=== PATIENT | male | born 1985 | race American Indian/Alaskan Native ===

== ENCOUNTER 2018-07-17 19:33 | Inpatient (IN) | payer SELFPAY ==
[2018-07-17] MEDS ORDERED: KEPPRA 1,000 MG/NS 0.75% 100ML 1,000 MG/100 ML BAG IV ONE (19:40)
[2018-07-17] MEDS ORDERED: ATIVAN IV ONE ×2 (19:40→22:30)
[2018-07-17] MEDS ORDERED: NACL 0.9% 1000 ML 1,000 ML IV ONE ×2 (19:40→20:35)
[2018-07-17] MEDS ORDERED: HumuLIN R IV ONE (19:41)
--- NOTE | 2018-07-17 19:59 | Emergency Department Report ---
ED Seizure HPI - General Stated Complaint: SEIZURE Time Seen by Provider: 07/17/18 19:40 Source: family, EMS - History of Present Illness Initial Comments: Patient is 33 years old male with no significant past medical history except for a remote seizure when he was 6 years old. Mother is giving history. She stated that since he was 6 years old he never had any seizure. Patient mother stated that he was getting dressed to go out and patient all of a sudden started having a jerking movement and his eyes rolled back and became unconscious. Mother stated that this is happening so far 3 times with no recovery in between. She denied any head injury or any other trauma before. EMS stated that patient blood sugar was 450. MD Complaint: seizure Description of Episode: loss of consciousness, tonic-clonic movement, post- event confusion Witnessed:: Yes Trauma: No Seizure History: known seizure disorder Place: home Possible Precipitating Event: none Associated Symptoms: denies other symptoms - Related Data Home Medications Medication Instructions Recorded Confirmed Last Taken No Known Home Medications [No 07/17/18 07/17/18 Unknown Reported Home Medications] Allergies Allergy/AdvReac Type Severity Reaction Status Date / Time No Known Allergies Allergy Unverified 07/17/18 19:47 ED Review of Systems ROS: Stated complaint: SEIZURE Other details as noted in HPI Comment: Unobtainable due to pts medical conditions ED Past Medical Hx - Medications Home Medications: Home Medications Medication Instructions Recorded Confirmed Last Taken Type No Known Home Medications [No 07/17/18 07/17/18 Unknown History Reported Home Medications] ED Physical Exam - General General appearance: obtunded, in distress - Head Head exam: Present: atraumatic, normocephalic, normal inspection - Eye Eye exam: Present: normal appearance, PERRL - ENT ENT exam: Present: normal exam, normal orophraynx, mucous membranes moist - Neck Neck exam: Present: normal inspection, full ROM. Absent: tenderness, meningismus, lymphadenopathy, thyromegaly - Respiratory Respiratory exam: Present: normal lung sounds bilaterally. Absent: respiratory distress, wheezes, rales, rhonchi, accessory muscle use, decreased breath sounds , prolonged expiratory - Cardiovascular Cardiovascular Exam: Present: tachycardia - GI/Abdominal GI/Abdominal exam: Present: soft, distended - Extremities Exam Extremities exam: Present: normal inspection, full ROM, normal capillary refill. Absent: pedal edema - Neurological Exam Neurological exam: Present: altered, other (postictal) - Skin Skin exam: Present: warm, intact, normal color ED Course Vital Signs 07/17/18 07/17/18 07/17/18 19:40 19:45 20:23 Temperature 99.9 F H Pulse Rate 189 H 154 H Respiratory 38 H 38 H 38 H Rate Blood Pressure 125/88 146/74 [Left] O2 Sat by Pulse 100 89 Oximetry 07/17/18 07/17/18 21:00 22:26 Temperature Pulse Rate 149 H Respiratory 34 H 30 H Rate Blood Pressure 139/73 [Left] O2 Sat by Pulse 50 L Oximetry - Reevaluation(s) Reevaluation #1: 07/17/18 20:30 Patient still obtunded and tachypneic. Oxygen saturation is 95% on 4 L. Patient started on IV fluids, given Ativan, Keppra and insulin. ABG ordered. Reevaluation #2: 07/17/18 21:18 Patient received sodium bicarbonate in started responding to voice or stimuli. His respiratory rate is down to 28 now. Patient denying diabetes 54 with a blood sugar off more than 600. Patient is in obvious DKA. Insulin drip started and patient continue on IV fluids. Decision to hold intubation was made because patient is responding to bicarbonate. I believe this is metabolic acidosis secondary to diabetic ketoacidosis with, and secondary respiratory alkalosis. Patient's CT brain is negative for acute findings. ED Medical Decision Making - Lab Data Result diagrams: 07/17/18 20:20 07/17/18 21:59 - EKG Data -: EKG Interpreted by Wi EKG shows normal: sinus rhythm Rate: tachycardia - EKG Data Interpretation: no acute changes - Radiology Data Radiology results: report reviewed Referring Physician: PAZ ALMEIDA Patient Name: CODEY GASPAR Date of : 1985 Sex: Male Report Date: 2018-07-17 Report Status: Finalized Findings [facility] [address] [place] [address] Cat Scan Report Signed Patient: CODEY GASPAR MR#: [id number] : 1985 Acct:[id number] Age/Sex: 33 / M ADM Date: 07/17/18 Loc: ED Attending Dr: Ordering Physician: PAZ ALMEIDA Date of Service: 07/17/18 Procedure(s): CT head/brain wo con Accession Number(s): [id number] cc: PAZ ALMEIDA FINAL REPORT EXAM: CT HEAD/BRAIN WO CON HISTORY: Seizure TECHNIQUE: 2.5 millimeter axial images from the skullbase to the vertex. Comparison: None FINDINGS: There is no evidence of an acute intracranial process, intracranial hemorrhage or mass effect. The ventricles are normal size. The visualized portions of the orbits, paranasal and mastoid sinuses the are notable for a moderate-sized polyp or retention cyst in the left maxillary sinus. There is no evidence of fracture. IMPRESSION: 1. No evidence of an acute intracranial process, intracranial hemorrhage or mass effect. If there is a clinical suspicion of an acute intracranial process, MRI brain may be helpful for further evaluation. Transcribed By: ED Dictated By: PRABHJOT YIN MD Electronically Authenticated By: PRABHJOT YIN MD Signed Date/Time: 07/17/182022 Referring Physician: PAZ ALMEIDA Patient Name: CODEY GASPAR Date of : 1985 Sex: Male Report Date: 2018-07-17 Report Status: Finalized Findings [facility] [address] [place] [address] XRay Report Signed Patient: CODYE GASPAR MR#: [id number] : 1985 Acct:[id number] Age/Sex: 33 / M ADM Date: 07/17/18 Loc: ED Attending Dr: Ordering Physician: PAZ ALMEIDA Date of Service: 07/17/18 Procedure(s): XR chest 1V ap Accession Number(s): [id number] cc: PAZ ALMEIDA Fluoro Time In Minutes: FINAL REPORT EXAM: XR CHEST 1V AP HISTORY: SOB TECHNIQUE: Frontal portable view of the chest Comparison: None FINDINGS: There is bilateral hypoinflation. There is no evidence of infiltrate or pneumothorax. There is possible blunting of the right costophrenic angle which may represent a small pleural effusion. Differential diagnosis includes artifact. Evaluation of the cardiomediastinal silhouette is significantly limited by the degree of hypoinflation. The bony structures are unremarkable. IMPRESSION: 1. Hypoinflation. 2. Possible small right pleural fluid collection. Differential diagnosis includes artifact. PA and lateral views of the chest may be helpful for further evaluation. Transcribed By: ED Dictated By: PRABHJOT YIN MD Electronically Authenticated By: PRABHJOT YIN MD Signed Date/Time: 07/17/182211 DD/ 11 TD/TT: 07/17/182211 DD/ 22 TD/TT: 07/17/182022 - Medical Decision Making Patient is 33 years old male with no significant past medical history except for a remote seizure when he was 6 years old. Mother is giving history. She stated that since he was 6 years old he never had any seizure. Patient mother stated that he was getting dressed to go out and patient all of a sudden started having a jerking movement and his eyes rolled back and became unconscious. Mother stated that this is happening so far 3 times with no recovery in between. She denied any head injury or any other trauma before. EMS stated that patient blood sugar was 450. 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 Oxygen saturation initially was in 88% patient put on oxygen and a went up to 95%. Patient is tachypneic. Patient found to have a DKA with anion gap 54. Patient is started on fluids and insulin drip. Patient. She is 6.6. Patient received sodium bicarbonate. Patient's started to respond to voice stimuli. Dr. Saez was paged for ICU admission. I discussed the patient was Dr. Marli Hidalgo, she agreed to admit the patient to medical service. Critical Care Time: Yes Critical care time in (mins) excluding proc time.: 45 Critical care attestation.: If time is entered above; I have spent that time in minutes in the direct care of this critically ill patient, excluding procedure time. ED Disposition Clinical Impression: Altered mental status, Diabetic ketoacidosis, Seizure, UTI (urinary tract infection) Disposition: OP ADMIT IP TO THIS HOSP Is pt being admited?: Yes Condition: Stable Instructions: Diabetic Ketoacidosis (ED) Referrals: PRIMARY CARE, [Primary Care Provider] - 3-5 Days
--- NOTE | 2018-07-17 20:25 | Cat Scan Report ---
FINAL REPORT EXAM: CT HEAD/BRAIN WO CON HISTORY: Seizure TECHNIQUE: 2.5 millimeter axial images from the skullbase to the vertex. Comparison: None FINDINGS: There is no evidence of an acute intracranial process, intracranial hemorrhage or mass effect. The ventricles are normal size. The visualized portions of the orbits, paranasal and mastoid sinuses the are notable for a moderate-sized polyp or retention cyst in the left maxillary sinus. There is no evidence of fracture. IMPRESSION: 1. No evidence of an acute intracranial process, intracranial hemorrhage or mass effect. If there is a clinical suspicion of an acute intracranial process, MRI brain may be helpful for further evaluation.
[2018-07-17 20:43] LABS: Mean Corpuscular HGB Conc 29 % (32-34); Mean Corpuscular Hemoglobin 30 pg (28-32); Mean Corpuscular Volume 105 fl (84-94); Platelet Count 400 K/mm3 (140-440); Red Blood Count 5.26 M/mm3 (3.65-5.03); Red Cell Distribution Width 15.2 % (13.2-15.2)
[2018-07-17] MEDS ORDERED: SODIUM BICARBONATE IV ONE ×4 (20:44→23:45)
[2018-07-17 20:45] LABS: Hematocrit 55.1 % (35.5-45.6); Hemoglobin 15.9 gm/dl (11.8-15.2)
[2018-07-17 20:51] LABS: Bacteria,Urine 4+ /HPF (Negative); Bilirubin,Urine NEG (Negative); Blood,Urine MOD (Negative); Color,Urine Yellow (Yellow); Mucus,Urine FEW /HPF; Sperm,Urine 3+ /HPF (NP); Urobilinogen,Urine < 2.0 mg/dL (<2.0)
[2018-07-17] MEDS ORDERED: ZOSYN/NS 4.5GM/100ML 4.5 GM/100 ML VIAL IV ONE (20:53)
[2018-07-17 21:01] LABS: Amphetamine Screen,Urine PRESUMPTIVE NEGATIVE; Benzodiazepines Screen,Urine PRESUMPTIVE NEGATIVE; Cannabinoid Screen,Urine PRESUMPTIVE NEGATIVE; Cocaine Screen,Urine PRESUMPTIVE NEGATIVE; Methadone Screen,Urine PRESUMPTIVE NEGATIVE; Opiate Screen,Urine PRESUMPTIVE NEGATIVE
[2018-07-17 21:05] LABS: Alanine Aminotransferase 41 units/L (7-56); Albumin 4.4 g/dL (3.9-5); BUN/Creatinine Ratio 7; Blood Urea Nitrogen 15 mg/dL (9-20); Calcium 10.8 mg/dL (8.4-10.2); Hemolysis Index 37
[2018-07-17 21:07] LABS: Bilirubin,Direct < 0.2 mg/dL (0-0.2)
[2018-07-17] MEDS ORDERED: D50W (25GM) Syringe IV PRN (21:12)
[2018-07-17 21:43] LABS: Anisocytosis 1+; Basophils % (Manual) 0 % (0.0-1.8); Eosinophils % (Manual) 0 % (0.0-4.3); Macrocytosis 1+; Ovalocytes 1+; Poikilocytosis Few; Tear Drop Cells Few; Total Cells Counted 100
[2018-07-17 21:44] LABS: Platelet Estimate Consistent w Auto
[2018-07-17] MEDS ORDERED: HumuLIN R 100 UNITS in NACL 0.9% 99 ML IV SCH (22:00)
--- NOTE | 2018-07-17 22:13 | XRay Report ---
FINAL REPORT EXAM: XR CHEST 1V AP HISTORY: SOB TECHNIQUE: Frontal portable view of the chest Comparison: None FINDINGS: There is bilateral hypoinflation. There is no evidence of infiltrate or pneumothorax. There is possible blunting of the right costophrenic angle which may represent a small pleural effusion. Differential diagnosis includes artifact. Evaluation of the cardiomediastinal silhouette is significantly limited by the degree of hypoinflation. The bony structures are unremarkable. IMPRESSION: 1. Hypoinflation. 2. Possible small right pleural fluid collection. Differential diagnosis includes artifact. PA and lateral views of the chest may be helpful for further evaluation.
[2018-07-17 22:25] LABS: Calcium 8.3 mg/dL (8.4-10.2)
[2018-07-17 22:43] LABS: BUN/Creatinine Ratio TNR; Blood Urea Nitrogen TNR mg/dL (9-20); Calcium TNR mg/dL (8.4-10.2)
[2018-07-17 22:44] LABS: Hemolysis Index TNR
[2018-07-17] MEDS ORDERED: ZOFRAN IV PRN (22:56)
[2018-07-17] MEDS ORDERED: SODIUM CHLORIDE FLUSH SYRINGE 10 ML IV PRN (22:56)
[2018-07-17] MEDS ORDERED: TYLENOL PO PRN (22:56)
--- NOTE | 2018-07-17 22:59 | History and Physical Report ---
History of Present Illness Date of examination: 07/17/18 History of present illness: 33-year-old man was brought to the emergency room because he had a seizure at home. In the emergency room he was loaded with IV Keppra and given IV Ativan. He is now sedated. He is found to be in DKA. Her history of systems is unobtainable, unable to reach family PAST MEDICAL HISTORY: History of seizure at the age of 6 PAST SURGICAL HISTORY: Unknown SOCIAL HISTORY: Unknown FAMILY HISTORY: Unknown Medications and Allergies Allergies Allergy/AdvReac Type Severity Reaction Status Date / Time No Known Allergies Allergy Unverified 07/17/18 19:47 Home Medications Medication Instructions Recorded Confirmed Last Taken Type No Known Home Medications [No 07/17/18 07/17/18 Unknown History Reported Home Medications] Active Meds: Active Medications Dextrose (D50w (25gm) Syringe) 0 ml IV PRN PRN PRN Reason: Hypoglycemia Insulin Human Regular 100 (units/ Sodium Chloride) 100 mls @ 1 mls/hr IV TITR ERIC; Protocol Last Titration: 07/17/18 22:29 Dose: 7 units/hr, 7 mls/hr Sodium Bicarbonate (Sodium Bicarbonate) 100 meq IV ONCE ONE Stop: 07/17/18 22:52 Last Admin: 07/17/18 20:55 Dose: 100 meq Exam - Physical Exam Narrative exam: Gen. appearance: Patient lying in bed, no apparent distress HEENT: Normocephalic, atraumatic, pupils equally round and reactive to light, unable to do extraocular movement, and no sclericterus,. No JVD or thyromegaly or nodule,neck supple, no carotid bruit ,mucous membranes dry, unable to examine oral cavity Heart: S1, S2, regular rate and rhythm Lungs: Clear bilaterally, breathing comfortable Abdomen: Positive bowel sounds, non-tender, nondistended, no organomegaly Extremity:no edema cyanosis, clubbing Skin: no rash, dry, warm Neuro: Sedated - Constitutional Vitals: Temp Pulse Resp BP Pulse Ox 99.9 F H 149 H 30 H 139/73 50 L 07/17/18 19:45 07/17/18 21:00 07/17/18 22:26 07/17/18 21:00 07/17/18 22:26 Results - Labs CBC & Chem 7: 07/17/18 20:20 07/17/18 21:59 Labs: Abnormal lab results 07/17/18 07/17/18 07/17/18 Range/Units 20:20 20:20 20:20 WBC 24.0 H (4.5-11.0) K/mm3 RBC 5.26 H (3.65-5.03) M/mm3 Hgb 15.9 H (11.8-15.2) gm/dl Hct 55.1 H (35.5-45.6) % MCV 105 H (84-94) fl MCHC 29 L (32-34) % Seg Neutrophils # Man 13.9 H (1.8-7.7) K/mm3 Lymphocytes # (Manual) 7.4 H (1.2-5.4) K/mm3 Monocytes # (Manual) 1.7 H (0.0-0.8) K/mm3 POC ABG pH (7.35-7.45) POC ABG pCO2 (35-45) POC ABG pO2 (80-105) Potassium 5.4 H (3.6-5.0) mmol/L Chloride 87.3 L (98-107) mmol/L Carbon Dioxide 2 L* (22-30) mmol/L Creatinine 2.2 H (0.8-1.5) mg/dL Glucose 629 H* (75-100) mg/dL POC Glucose (70-105) Lactic Acid (0.7-2.0) mmol/L Calcium 10.8 H (8.4-10.2) mg/dL Phosphorus (2.5-4.5) mg/dL Magnesium (1.7-2.3) mg/dL Alkaline Phosphatase 147 H (35-129) units/L Total Creatine Kinase (55-170) units/L Urine WBC (Auto) (0.0-6.0) /HPF Salicylates < 0.3 L (2.8-20.0) mg/dL Acetaminophen (10.0-30.0) ug/mL 07/17/18 07/17/18 07/17/18 Range/Units 20:20 20:20 20:26 WBC (4.5-11.0) K/mm3 RBC (3.65-5.03) M/mm3 Hgb (11.8-15.2) gm/dl Hct (35.5-45.6) % MCV (84-94) fl MCHC (32-34) % Seg Neutrophils # Man (1.8-7.7) K/mm3 Lymphocytes # (Manual) (1.2-5.4) K/mm3 Monocytes # (Manual) (0.0-0.8) K/mm3 POC ABG pH (7.35-7.45) POC ABG pCO2 (35-45) POC ABG pO2 (80-105) Potassium (3.6-5.0) mmol/L Chloride (98-107) mmol/L Carbon Dioxide (22-30) mmol/L Creatinine (0.8-1.5) mg/dL Glucose (75-100) mg/dL POC Glucose (70-105) Lactic Acid (0.7-2.0) mmol/L Calcium (8.4-10.2) mg/dL Phosphorus (2.5-4.5) mg/dL Magnesium (1.7-2.3) mg/dL Alkaline Phosphatase (35-129) units/L Total Creatine Kinase 253 H (55-170) units/L Urine WBC (Auto) 15.0 H (0.0-6.0) /HPF Salicylates (2.8-20.0) mg/dL Acetaminophen < 5.0 L (10.0-30.0) ug/mL 07/17/18 07/17/18 07/17/18 Range/Units 20:36 20:41 21:59 WBC (4.5-11.0) K/mm3 RBC (3.65-5.03) M/mm3 Hgb (11.8-15.2) gm/dl Hct (35.5-45.6) % MCV (84-94) fl MCHC (32-34) % Seg Neutrophils # Man (1.8-7.7) K/mm3 Lymphocytes # (Manual) (1.2-5.4) K/mm3 Monocytes # (Manual) (0.0-0.8) K/mm3 POC ABG pH 6.693 L (7.35-7.45) POC ABG pCO2 15.9 L (35-45) POC ABG pO2 213 H (80-105) Potassium (3.6-5.0) mmol/L Chloride (98-107) mmol/L Carbon Dioxide (22-30) mmol/L Creatinine (0.8-1.5) mg/dL Glucose (75-100) mg/dL POC Glucose 444 H (70-105) Lactic Acid 17.00 H* (0.7-2.0) mmol/L Calcium (8.4-10.2) mg/dL Phosphorus (2.5-4.5) mg/dL Magnesium (1.7-2.3) mg/dL Alkaline Phosphatase (35-129) units/L Total Creatine Kinase (55-170) units/L Urine WBC (Auto) (0.0-6.0) /HPF Salicylates (2.8-20.0) mg/dL Acetaminophen (10.0-30.0) ug/mL 07/17/18 07/17/18 Range/Units 21:59 21:59 WBC (4.5-11.0) K/mm3 RBC (3.65-5.03) M/mm3 Hgb (11.8-15.2) gm/dl Hct (35.5-45.6) % MCV (84-94) fl MCHC (32-34) % Seg Neutrophils # Man (1.8-7.7) K/mm3 Lymphocytes # (Manual) (1.2-5.4) K/mm3 Monocytes # (Manual) (0.0-0.8) K/mm3 POC ABG pH (7.35-7.45) POC ABG pCO2 (35-45) POC ABG pO2 (80-105) Potassium (3.6-5.0) mmol/L Chloride (98-107) mmol/L Carbon Dioxide 8 L* (22-30) mmol/L Creatinine 2.0 H (0.8-1.5) mg/dL Glucose 503 H* (75-100) mg/dL POC Glucose (70-105) Lactic Acid (0.7-2.0) mmol/L Calcium 8.3 L D (8.4-10.2) mg/dL Phosphorus 4.90 H (2.5-4.5) mg/dL Magnesium 3.60 H (1.7-2.3) mg/dL Alkaline Phosphatase (35-129) units/L Total Creatine Kinase (55-170) units/L Urine WBC (Auto) (0.0-6.0) /HPF Salicylates (2.8-20.0) mg/dL Acetaminophen (10.0-30.0) ug/mL - Imaging and Cardiology Chest x-ray: image reviewed CT Scan - head: report reviewed Assessment and Plan Assessment DKA Sepsis Seizure most likely secondary to DKA UTI Severe Metabolic acidosis Dehydration Plan Admit to medicine Start DKA protocol with IV fluid, insulin drip Monitor serial electrolytes, check hemoglobin A1c Start IV Zosyn, follow cultures DVT prophylaxis, consult critical care
[2018-07-17] MEDS ORDERED: NACL 0.9% 1000 ML 1,000 ML IV SCH (23:00)
[2018-07-17] MEDS ORDERED: SODIUM BICARBONATE 50 MEQ in NACL 0.9% 1000 ML 1,000 ML IV SCH (23:00)
[2018-07-17] MEDS ORDERED: D5/0.45NS 1,000 ML IV SCH (23:00)
[2018-07-17] MEDS ORDERED: SODIUM BICARBONATE 100 MEQ in NACL 0.9% 1000 ML 1,000 ML IV SCH (23:00)
[2018-07-18] MEDS: ZOSYN/NS 3.375GM/50ML 3.375 GM/50 ML BAG IV SCH ×3 (01:50→15:56)
[2018-07-18] MEDS: SODIUM CHLORIDE FLUSH SYRINGE 10 ML IV SCH ×2 (01:55→10:00)
[2018-07-18] MEDS ORDERED: D5/0.45NS 1,000 ML IV ONE (03:06)
[2018-07-18 04:48] LABS: Calcium 8.2 mg/dL (8.4-10.2)
[2018-07-18] MEDS: KCL 10MEQ/100ML 10 MEQ/100 ML BAG IV SCH ×7 (05:46→21:42)
[2018-07-18] MEDS: D5W/0.45% NACL/KCL 20 MEQ 20 MEQ/1,000 ML BAG IV SCH ×2 (05:46→17:00)
[2018-07-18] MEDS ORDERED: ZOSYN/NS 4.5GM/100ML 4.5 GM/100 ML VIAL IV SCH (06:00)
[2018-07-18] MEDS: LOVENOX SUB-Q SCH (10:09)
--- NOTE | 2018-07-18 14:48 | Progress Note ---
Subjective Date of service: 07/18/18 Objective - Constitutional Vitals: Vital Signs - 12hr 07/18/18 07/18/18 07/18/18 03:00 04:00 05:00 Pulse Rate 87 79 80 Respiratory 16 16 15 Rate Blood Pressure 117/73 126/92 130/86 O2 Sat by Pulse 100 Oximetry 07/18/18 07/18/18 07/18/18 06:01 07:00 08:01 Pulse Rate 86 99 H 101 H Respiratory 15 15 19 Rate Blood Pressure 130/86 147/101 140/104 O2 Sat by Pulse 100 100 96 Oximetry 07/18/18 07/18/18 07/18/18 09:00 10:00 11:00 Pulse Rate 70 73 74 Respiratory 17 18 17 Rate Blood Pressure 129/77 128/81 137/84 O2 Sat by Pulse 98 97 98 Oximetry 07/18/18 07/18/18 07/18/18 12:00 13:00 13:11 Pulse Rate 80 85 Respiratory 15 14 15 Rate Blood Pressure 126/83 133/87 O2 Sat by Pulse 98 100 100 Oximetry - Labs CBC & Chem 7: 07/17/18 20:20 07/18/18 04:18 Labs: Abnormal lab results 07/17/18 07/17/18 07/17/18 Range/Units 20:20 20:20 20:20 WBC 24.0 H (4.5-11.0) K/mm3 RBC 5.26 H (3.65-5.03) M/mm3 Hgb 15.9 H (11.8-15.2) gm/dl Hct 55.1 H (35.5-45.6) % MCV 105 H (84-94) fl MCHC 29 L (32-34) % Seg Neutrophils # Man 13.9 H (1.8-7.7) K/mm3 Lymphocytes # (Manual) 7.4 H (1.2-5.4) K/mm3 Monocytes # (Manual) 1.7 H (0.0-0.8) K/mm3 POC ABG pH (7.35-7.45) POC ABG pCO2 (35-45) POC ABG pO2 (80-105) Potassium 5.4 H (3.6-5.0) mmol/L Chloride 87.3 L (98-107) mmol/L Carbon Dioxide 2 L* (22-30) mmol/L Creatinine 2.2 H (0.8-1.5) mg/dL Glucose 629 H* (75-100) mg/dL POC Glucose (70-105) Hemoglobin A1c (4-6) % Lactic Acid (0.7-2.0) mmol/L Calcium 10.8 H (8.4-10.2) mg/dL Phosphorus (2.5-4.5) mg/dL Magnesium (1.7-2.3) mg/dL Alkaline Phosphatase 147 H (35-129) units/L Total Creatine Kinase (55-170) units/L Urine WBC (Auto) (0.0-6.0) /HPF Salicylates < 0.3 L (2.8-20.0) mg/dL Acetaminophen (10.0-30.0) ug/mL 07/17/18 07/17/18 07/17/18 Range/Units 20:20 20:20 20:26 WBC (4.5-11.0) K/mm3 RBC (3.65-5.03) M/mm3 Hgb (11.8-15.2) gm/dl Hct (35.5-45.6) % MCV (84-94) fl MCHC (32-34) % Seg Neutrophils # Man (1.8-7.7) K/mm3 Lymphocytes # (Manual) (1.2-5.4) K/mm3 Monocytes # (Manual) (0.0-0.8) K/mm3 POC ABG pH (7.35-7.45) POC ABG pCO2 (35-45) POC ABG pO2 (80-105) Potassium (3.6-5.0) mmol/L Chloride (98-107) mmol/L Carbon Dioxide (22-30) mmol/L Creatinine (0.8-1.5) mg/dL Glucose (75-100) mg/dL POC Glucose (70-105) Hemoglobin A1c (4-6) % Lactic Acid (0.7-2.0) mmol/L Calcium (8.4-10.2) mg/dL Phosphorus (2.5-4.5) mg/dL Magnesium (1.7-2.3) mg/dL Alkaline Phosphatase (35-129) units/L Total Creatine Kinase 253 H (55-170) units/L Urine WBC (Auto) 15.0 H (0.0-6.0) /HPF Salicylates (2.8-20.0) mg/dL Acetaminophen < 5.0 L (10.0-30.0) ug/mL 07/17/18 07/17/18 07/17/18 Range/Units 20:36 20:41 21:59 WBC (4.5-11.0) K/mm3 RBC (3.65-5.03) M/mm3 Hgb (11.8-15.2) gm/dl Hct (35.5-45.6) % MCV (84-94) fl MCHC (32-34) % Seg Neutrophils # Man (1.8-7.7) K/mm3 Lymphocytes # (Manual) (1.2-5.4) K/mm3 Monocytes # (Manual) (0.0-0.8) K/mm3 POC ABG pH 6.693 L (7.35-7.45) POC ABG pCO2 15.9 L (35-45) POC ABG pO2 213 H (80-105) Potassium (3.6-5.0) mmol/L Chloride (98-107) mmol/L Carbon Dioxide (22-30) mmol/L Creatinine (0.8-1.5) mg/dL Glucose (75-100) mg/dL POC Glucose 444 H (70-105) Hemoglobin A1c (4-6) % Lactic Acid 17.00 H* (0.7-2.0) mmol/L Calcium (8.4-10.2) mg/dL Phosphorus (2.5-4.5) mg/dL Magnesium (1.7-2.3) mg/dL Alkaline Phosphatase (35-129) units/L Total Creatine Kinase (55-170) units/L Urine WBC (Auto) (0.0-6.0) /HPF Salicylates (2.8-20.0) mg/dL Acetaminophen (10.0-30.0) ug/mL 07/17/18 07/17/18 07/17/18 Range/Units 21:59 21:59 23:20 WBC (4.5-11.0) K/mm3 RBC (3.65-5.03) M/mm3 Hgb (11.8-15.2) gm/dl Hct (35.5-45.6) % MCV (84-94) fl MCHC (32-34) % Seg Neutrophils # Man (1.8-7.7) K/mm3 Lymphocytes # (Manual) (1.2-5.4) K/mm3 Monocytes # (Manual) (0.0-0.8) K/mm3 POC ABG pH (7.35-7.45) POC ABG pCO2 (35-45) POC ABG pO2 (80-105) Potassium (3.6-5.0) mmol/L Chloride (98-107) mmol/L Carbon Dioxide 8 L* (22-30) mmol/L Creatinine 2.0 H (0.8-1.5) mg/dL Glucose 503 H* (75-100) mg/dL POC Glucose (70-105) Hemoglobin A1c (4-6) % Lactic Acid 9.20 H* (0.7-2.0) mmol/L Calcium 8.3 L D (8.4-10.2) mg/dL Phosphorus 4.90 H (2.5-4.5) mg/dL Magnesium 3.60 H (1.7-2.3) mg/dL Alkaline Phosphatase (35-129) units/L Total Creatine Kinase (55-170) units/L Urine WBC (Auto) (0.0-6.0) /HPF Salicylates (2.8-20.0) mg/dL Acetaminophen (10.0-30.0) ug/mL 07/18/18 07/18/18 07/18/18 Range/Units 04:18 04:18 04:18 WBC (4.5-11.0) K/mm3 RBC (3.65-5.03) M/mm3 Hgb (11.8-15.2) gm/dl Hct (35.5-45.6) % MCV (84-94) fl MCHC (32-34) % Seg Neutrophils # Man (1.8-7.7) K/mm3 Lymphocytes # (Manual) (1.2-5.4) K/mm3 Monocytes # (Manual) (0.0-0.8) K/mm3 POC ABG pH (7.35-7.45) POC ABG pCO2 (35-45) POC ABG pO2 (80-105) Potassium 2.3 L* D (3.6-5.0) mmol/L Chloride 110.6 H (98-107) mmol/L Carbon Dioxide 18 L D (22-30) mmol/L Creatinine 1.7 H (0.8-1.5) mg/dL Glucose 202 H (75-100) mg/dL POC Glucose (70-105) Hemoglobin A1c 15.2 H (4-6) % Lactic Acid 2.30 H* (0.7-2.0) mmol/L Calcium 8.2 L (8.4-10.2) mg/dL Phosphorus (2.5-4.5) mg/dL Magnesium (1.7-2.3) mg/dL Alkaline Phosphatase (35-129) units/L Total Creatine Kinase (55-170) units/L Urine WBC (Auto) (0.0-6.0) /HPF Salicylates (2.8-20.0) mg/dL Acetaminophen (10.0-30.0) ug/mL
[2018-07-18 15:10] LABS: Calcium 8.3 mg/dL (8.4-10.2)
[2018-07-18] MEDS ORDERED: ZOSYN/NS 4.5GM/100ML 0 GM/0 ML VIAL IV ONE (15:34)
[2018-07-18 16:16] LABS: Calcium 8.4 mg/dL (8.4-10.2)
[2018-07-18] MEDS ORDERED: KCL 10MEQ/100ML 10 MEQ/100 ML BAG IV SCH (17:00)
[2018-07-18] MEDS: ROCEPHIN/NS 2 GM/100 ML 2 GM/100 ML BAG IV SCH (17:02)
[2018-07-18 17:19] LABS: Calcium 8.3 mg/dL (8.4-10.2)
--- NOTE | 2018-07-18 17:30 | Consultation ---
History of Present Illness Consult date: 07/18/18 Requesting physician: PAZ ALMEIDA Reason for consult: other (DKA; NODM) History of present illness: Consulted for DKA and need for ICU admission Anion Gap had closed at time of evaluation A&P: - d/c IV insulin - begin long acting insulin - accuchecks and SSI - downgrade to medical floor Medications and Allergies Allergies Allergy/AdvReac Type Severity Reaction Status Date / Time No Known Allergies Allergy Unverified 07/17/18 19:47 Home Medications Medication Instructions Recorded Confirmed Last Taken Type No Known Home Medications [No 07/17/18 07/17/18 Unknown History Reported Home Medications] Active Meds: Active Medications Acetaminophen (Tylenol) 650 mg PO Q4H PRN PRN Reason: Pain MILD(1-3)/Fever >100.5/MYERS Dextrose (D50w (25gm) Syringe) 0 ml IV PRN PRN PRN Reason: Hypoglycemia Enoxaparin Sodium (Lovenox) 40 mg SUB-Q QDAY ERIC Last Admin: 07/18/18 10:09 Dose: 40 mg Insulin Human Regular 100 (units/ Sodium Chloride) 100 mls @ 1 mls/hr IV TITR ERIC; Protocol Last Titration: 07/18/18 16:30 Dose: 1.5 units/hr, 1.5 mls/hr Sodium Chloride (Nacl 0.9% 1000 Ml) 1,000 mls @ 150 mls/hr IV DIRECT ERIC Last Admin: 07/17/18 23:29 Dose: 150 mls/hr Potassium Chloride/Dextrose/Sod Cl (D5w/0.45% Nacl/Kcl 20 Meq) 20 meq in 1,000 mls @ 150 mls/hr IV DIRECT ERIC Last Admin: 07/18/18 05:46 Dose: 150 mls/hr Ceftriaxone Sodium (Rocephin/Ns 2 Gm/100 Ml) 2 gm in 100 mls @ 200 mls/hr IV Q24HR ERIC; Protocol Potassium Chloride (Kcl 10meq/100ml) 10 meq in 100 mls @ 100 mls/hr IV Q1H ERIC Stop: 07/18/18 18:59 Ondansetron HCl (Zofran) 4 mg IV Q8H PRN PRN Reason: Nausea And Vomiting Sodium Chloride (Sodium Chloride Flush Syringe 10 Ml) 10 ml IV BID ERIC Last Admin: 07/18/18 10:00 Dose: 10 ml Sodium Chloride (Sodium Chloride Flush Syringe 10 Ml) 10 ml IV PRN PRN PRN Reason: LINE FLUSH Physical Examination Vital signs: Vital Signs Resp Pulse Ox 38 H 100 07/17/18 19:40 07/17/18 19:40 Results - Laboratory Findings CBC and BMP: 07/19/18 09:23 07/19/18 09:16 ABG POC ABG pH 6.693 (7.35-7.45) L 07/17/18 20:36 POC ABG pCO2 15.9 (35-45) L 07/17/18 20:36 POC ABG pO2 213 (80-105) H 07/17/18 20:36 POC ABG HCO3 1.9 07/17/18 20:36 POC ABG Total CO2 < 5 07/17/18 20:36 POC ABG O2 Sat 98 07/17/18 20:36 Abnormal lab findings: Abnormal Labs 07/17/18 07/17/18 07/17/18 20:20 20:20 20:20 WBC 24.0 H RBC 5.26 H Hgb 15.9 H Hct 55.1 H MCV 105 H MCHC 29 L Seg Neutrophils # Man 13.9 H Lymphocytes # (Manual) 7.4 H Monocytes # (Manual) 1.7 H POC ABG pH POC ABG pCO2 POC ABG pO2 Sodium Potassium 5.4 H Chloride 87.3 L Carbon Dioxide 2 L* Creatinine 2.2 H Glucose 629 H* POC Glucose Hemoglobin A1c Lactic Acid Calcium 10.8 H Phosphorus Magnesium Alkaline Phosphatase 147 H Total Creatine Kinase Urine WBC (Auto) Salicylates < 0.3 L Acetaminophen 07/17/18 07/17/18 07/17/18 20:20 20:20 20:26 WBC RBC Hgb Hct MCV MCHC Seg Neutrophils # Man Lymphocytes # (Manual) Monocytes # (Manual) POC ABG pH POC ABG pCO2 POC ABG pO2 Sodium Potassium Chloride Carbon Dioxide Creatinine Glucose POC Glucose Hemoglobin A1c Lactic Acid Calcium Phosphorus Magnesium Alkaline Phosphatase Total Creatine Kinase 253 H Urine WBC (Auto) 15.0 H Salicylates Acetaminophen < 5.0 L 07/17/18 07/17/18 07/17/18 20:36 20:41 21:59 WBC RBC Hgb Hct MCV MCHC Seg Neutrophils # Man Lymphocytes # (Manual) Monocytes # (Manual) POC ABG pH 6.693 L POC ABG pCO2 15.9 L POC ABG pO2 213 H Sodium Potassium Chloride Carbon Dioxide Creatinine Glucose POC Glucose 444 H Hemoglobin A1c Lactic Acid 17.00 H* Calcium Phosphorus Magnesium Alkaline Phosphatase Total Creatine Kinase Urine WBC (Auto) Salicylates Acetaminophen 07/17/18 07/17/18 07/17/18 21:59 21:59 23:20 WBC RBC Hgb Hct MCV MCHC Seg Neutrophils # Man Lymphocytes # (Manual) Monocytes # (Manual) POC ABG pH POC ABG pCO2 POC ABG pO2 Sodium Potassium Chloride Carbon Dioxide 8 L* Creatinine 2.0 H Glucose 503 H* POC Glucose Hemoglobin A1c Lactic Acid 9.20 H* Calcium 8.3 L D Phosphorus 4.90 H Magnesium 3.60 H Alkaline Phosphatase Total Creatine Kinase Urine WBC (Auto) Salicylates Acetaminophen 07/18/18 07/18/18 07/18/18 04:18 04:18 04:18 WBC RBC Hgb Hct MCV MCHC Seg Neutrophils # Man Lymphocytes # (Manual) Monocytes # (Manual) POC ABG pH POC ABG pCO2 POC ABG pO2 Sodium Potassium 2.3 L* D Chloride 110.6 H Carbon Dioxide 18 L D Creatinine 1.7 H Glucose 202 H POC Glucose Hemoglobin A1c 15.2 H Lactic Acid 2.30 H* Calcium 8.2 L Phosphorus Magnesium Alkaline Phosphatase Total Creatine Kinase Urine WBC (Auto) Salicylates Acetaminophen 07/18/18 07/18/18 07/18/18 13:40 15:34 16:43 WBC RBC Hgb Hct MCV MCHC Seg Neutrophils # Man Lymphocytes # (Manual) Monocytes # (Manual) POC ABG pH POC ABG pCO2 POC ABG pO2 Sodium 148 H 146 H 146 H Potassium 1.9 L* 2.0 L* 2.2 L* Chloride 115.1 H 114.2 H 114.7 H Carbon Dioxide 17 L 17 L 16 L Creatinine 2.0 H 2.0 H 1.8 H Glucose 129 H 148 H 121 H POC Glucose Hemoglobin A1c Lactic Acid Calcium 8.3 L 8.3 L Phosphorus Magnesium Alkaline Phosphatase Total Creatine Kinase Urine WBC (Auto) Salicylates Acetaminophen
[2018-07-18 22:03] LABS: Calcium 8.1 mg/dL (8.4-10.2)
[2018-07-19] MEDS ORDERED: HumaLOG SUB-Q SCH (01:00)
[2018-07-19] MEDS: HumaLOG SUB-Q SCH ×5 (01:29→22:10)
[2018-07-19] MEDS: D5W/0.45% NACL/KCL 20 MEQ 20 MEQ/1,000 ML BAG IV SCH (03:42)
--- NOTE | 2018-07-19 08:32 | Progress Note ---
Assessment and Plan Assessment and plan: --Diabetic ketoacidosis; resolved Insulin drip discontinued, change IV fluids to normal saline Transition to long-acting insulin 7030, Accu-Chek sliding scale coverage and ADA diet, Patient's hemoglobin A1c is 15.1 Diabetic education, diabetic diet, possible home health nurse for this is monitoring at discharge --Hypokalemia; corrected yesterday, follow levels, labs not available --Acute kidney injury; probably secondary to ATN Mild improvement, continue IV hydration closely monitor renal function Avoid nephrotoxins --Severe metabolic acidosis; secondary to DKA, mild improvement Continue to monitor --Seizure-like activity at admission, no new episodes of seizure Continue seizure precautions --Sepsis; continue medical antibiotics, follow cultures --DVT prophylaxis; Lovenox Plan of care reviewed with the patient family members at the bedside, and his nurse History Interval history: Patient seen and examined medical records reviewed Admitted with DKA, blood sugars reasonable level Insulin drip discontinued Restart oral ADA diet Start long-acting insulin Patient is sleeping easily awakens, not in acute distress Multiple family members at the bedside Hospitalist Physical - Constitutional Vitals: Temp Pulse Resp BP Pulse Ox 98.5 F 101 H 9 L 128/80 99 07/19/18 04:35 07/19/18 04:30 07/19/18 04:30 07/19/18 04:30 07/19/18 07:56 General appearance: Present: no acute distress, well-nourished, obese - EENT Eyes: Present: PERRL, EOM intact - Neck Neck: Present: supple, normal ROM - Respiratory Respiratory effort: normal Respiratory: bilateral: diminished, negative: rales, rhonchi, wheezing - Cardiovascular Rhythm: regular Heart Sounds: Present: S1 & S2 - Extremities Extremities: no ischemia, pulses intact Peripheral Pulses: within normal limits - Abdominal General gastrointestinal: soft, non-tender, non-distended, normal bowel sounds - Integumentary Integumentary: Present: clear, warm - Psychiatric Psychiatric: appropriate mood/affect, cooperative - Neurologic Neurologic: CNII-XII intact, moves all extremities Results - Labs CBC & Chem 7: 07/19/18 09:23 07/19/18 09:16 Labs: Laboratory Last Values WBC 24.0 K/mm3 (4.5-11.0) H 07/17/18 20:20 RBC 5.26 M/mm3 (3.65-5.03) H 07/17/18 20:20 Hgb 15.9 gm/dl (11.8-15.2) H 07/17/18 20:20 Hct 55.1 % (35.5-45.6) H 07/17/18 20:20 MCV 105 fl (84-94) H 07/17/18 20:20 MCH 30 pg (28-32) 07/17/18 20:20 MCHC 29 % (32-34) L 07/17/18 20:20 RDW 15.2 % (13.2-15.2) 07/17/18 20:20 Plt Count 400 K/mm3 (140-440) 07/17/18 20:20 Lymph # Administrative Assistant Front Desk 07/17/18 20:20 Add Manual Diff Complete 07/17/18 20:20 Total Counted 100 07/17/18 20:20 Seg Neuts % (Manual) 58.0 % (40.0-70.0) 07/17/18 20:20 Band Neutrophils % 4.0 % 07/17/18 20:20 Lymphocytes % (Manual) 31.0 % (13.4-35.0) 07/17/18 20:20 Reactive Lymphs % (Man) 0 % 07/17/18 20:20 Monocytes % (Manual) 7.0 % (0.0-7.3) 07/17/18 20:20 Eosinophils % (Manual) 0 % (0.0-4.3) 07/17/18 20:20 Basophils % (Manual) 0 % (0.0-1.8) 07/17/18 20:20 Metamyelocytes % 0 % 07/17/18 20:20 Myelocytes % 0 % 07/17/18 20:20 Promyelocytes % 0 % 07/17/18 20:20 Blast Cells % 0 % 07/17/18 20:20 Nucleated RBC % Not Reportable 07/17/18 20:20 Seg Neutrophils # Man 13.9 K/mm3 (1.8-7.7) H 07/17/18 20:20 Band Neutrophils # 1.0 K/mm3 07/17/18 20:20 Lymphocytes # (Manual) 7.4 K/mm3 (1.2-5.4) H 07/17/18 20:20 Abs React Lymphs (Man) 0.0 K/mm3 07/17/18 20:20 Monocytes # (Manual) 1.7 K/mm3 (0.0-0.8) H 07/17/18 20:20 Eosinophils # (Manual) 0.0 K/mm3 (0.0-0.4) 07/17/18 20:20 Basophils # (Manual) 0.0 K/mm3 (0.0-0.1) 07/17/18 20:20 Metamyelocytes # 0.0 K/mm3 07/17/18 20:20 Myelocytes # 0.0 K/mm3 07/17/18 20:20 Promyelocytes # 0.0 K/mm3 07/17/18 20:20 Blast Cells # 0.0 K/mm3 07/17/18 20:20 WBC Morphology Not Reportable 07/17/18 20:20 Hypersegmented Neuts Not Reportable 07/17/18 20:20 Hyposegmented Neuts Not Reportable 07/17/18 20:20 Hypogranular Neuts Not Reportable 07/17/18 20:20 Smudge Cells Not Reportable 07/17/18 20:20 Toxic Granulation Not Reportable 07/17/18 20:20 Toxic Vacuolation Not Reportable 07/17/18 20:20 Dohle Bodies Not Reportable 07/17/18 20:20 Pelger-Huet Anomaly Not Reportable 07/17/18 20:20 Sara Rods Not Reportable 07/17/18 20:20 Platelet Estimate Consistent w auto 07/17/18 20:20 Clumped Platelets Not Reportable 07/17/18 20:20 Plt Clumps, EDTA Not Reportable 07/17/18 20:20 Large Platelets Not Reportable 07/17/18 20:20 Giant Platelets Not Reportable 07/17/18 20:20 Platelet Satelliting Not Reportable 07/17/18 20:20 Plt Morphology Comment Not Reportable 07/17/18 20:20 RBC Morphology Not Reportable 07/17/18 20:20 Dimorphic RBCs Not Reportable 07/17/18 20:20 Polychromasia Not Reportable 07/17/18 20:20 Hypochromasia Not Reportable 07/17/18 20:20 Poikilocytosis Few 07/17/18 20:20 Anisocytosis 1+ 07/17/18 20:20 Microcytosis Not Reportable 07/17/18 20:20 Macrocytosis 1+ 07/17/18 20:20 Spherocytes Not Reportable 07/17/18 20:20 Pappenheimer Bodies Not Reportable 07/17/18 20:20 Sickle Cells Not Reportable 07/17/18 20:20 Target Cells Not Reportable 07/17/18 20:20 Tear Drop Cells Few 07/17/18 20:20 Ovalocytes 1+ 07/17/18 20:20 Helmet Cells Not Reportable 07/17/18 20:20 Rodriguez-[place] Bodies Not Reportable 07/17/18 20:20 [place] Rings Not Reportable 07/17/18 20:20 [place] Cells Not Reportable 07/17/18 20:20 Bite Cells Not Reportable 07/17/18 20:20 Crenated Cell Not Reportable 07/17/18 20:20 Elliptocytes Not Reportable 07/17/18 20:20 Acanthocytes (Spur) Not Reportable 07/17/18 20:20 Rouleaux Not Reportable 07/17/18 20:20 Hemoglobin C Crystals Not Reportable 07/17/18 20:20 Schistocytes Not Reportable 07/17/18 20:20 Malaria parasites Not Reportable 07/17/18 20:20 [place] Bodies Not Reportable 07/17/18 20:20 Hem Pathologist Commnt No 07/17/18 20:20 POC ABG pH 6.693 (7.35-7.45) L 07/17/18 20:36 POC ABG pCO2 15.9 (35-45) L 07/17/18 20:36 POC ABG pO2 213 (80-105) H 07/17/18 20:36 POC ABG HCO3 1.9 07/17/18 20:36 POC ABG Total CO2 < 5 07/17/18 20:36 POC ABG O2 Sat 98 07/17/18 20:36 POC ABG Base Excess < -30 07/17/18 20:36 FiO2 100 % 07/17/18 20:36 Sodium 148 mmol/L (137-145) H 07/18/18 21:16 Potassium 2.7 mmol/L (3.6-5.0) L* D 07/18/18 21:16 Chloride 116.7 mmol/L (98-107) H 07/18/18 21:16 Carbon Dioxide 17 mmol/L (22-30) L 07/18/18 21:16 Anion Gap 17 mmol/L 07/18/18 21:16 BUN 13 mg/dL (9-20) 07/18/18 21:16 Creatinine 1.9 mg/dL (0.8-1.5) H 07/18/18 21:16 Estimated GFR 49 ml/min 07/18/18 21:16 BUN/Creatinine Ratio 7 % 07/18/18 21:16 Glucose 222 mg/dL (75-100) H 07/18/18 21:16 POC Glucose 279 (70-105) H 07/19/18 07:35 Hemoglobin A1c 15.2 % (4-6) H 07/18/18 04:18 Lactic Acid 2.30 mmol/L (0.7-2.0) H* 07/18/18 04:18 Calcium 8.1 mg/dL (8.4-10.2) L 07/18/18 21:16 Phosphorus 4.90 mg/dL (2.5-4.5) H 07/17/18 21:59 Magnesium 3.60 mg/dL (1.7-2.3) H 07/17/18 21:59 Total Bilirubin 0.30 mg/dL (0.1-1.2) 07/17/18 20:20 Direct Bilirubin < 0.2 mg/dL (0-0.2) 07/17/18 20:20 Indirect Bilirubin 0.1 mg/dL 07/17/18 20:20 AST 38 units/L (5-40) 07/17/18 20:20 ALT 41 units/L (7-56) 07/17/18 20:20 Alkaline Phosphatase 147 units/L (35-129) H 07/17/18 20:20 Total Creatine Kinase 253 units/L (55-170) H 07/17/18 20:20 Troponin T < 0.010 ng/mL (0.00-0.029) 07/17/18 20:51 NT-Pro-B Natriuret Pep 165.4 pg/mL (0-450) 07/17/18 20:36 Total Protein 7.8 g/dL (6.3-8.2) 07/17/18 20:20 Albumin 4.4 g/dL (3.9-5) 07/17/18 20: Albumin/Globulin Ratio 1.3 % 07/17/18 20: Urine Color Yellow (Yellow) 07/17/18 20: Urine Turbidity Cloudy (Clear) 07/17/18 20: Urine pH 5.0 (5.0-7.0) 07/17/18 20: Ur Specific [place] 1.029 (1.003-1.030) 07/17/18: Urine Protein 30 mg/dl mg/dL (Negative) 07/17/18 20: Urine Glucose (UA) >=500 mg/dL (Negative) 07/17/18: Urine Ketones Tr mg/dL (Negative) 07/17/18 Urine Blood Mod (Negative) 07/17/18 20: Urine Nitrite Neg (Negative) 07/17/18: Urine Bilirubin Neg (Negative) 07/17/18: Urine Urobilinogen < 2.0 mg/dL (<2.0) 07/17/18 20: Ur Leukocyte Esterase Neg (Negative) 07/17/18 20: Urine WBC (Auto) 15.0 /HPF (0.0-6.0) H 07/17/18: Urine RBC (Auto) 50.0 /HPF (0.0-6.0) 07/17/18 20: Urine Bacteria (Auto) 4+ /HPF (Negative) 07/17/18: Urine Mucus Few /HPF 07/17/18: Urine Yeast (Budding) 3+ /HPF 07/17/18: Urine Sperm 3+ /HPF (SORORITY MOTHER) 07/17/18: Salicylates < 0.3 mg/dL (2.8-20.0) L 07/17/18 20: Urine Opiates Screen Presumptive negative 07/17/18: Urine Methadone Screen Presumptive negative 07/17/18: Acetaminophen < 5.0 ug/mL (10.0-30.0) L 07/17/18 20:20 Ur Barbiturates Screen Presumptive negative 07/17/18: Ur Phencyclidine Scrn Presumptive negative 07/17/18: Ur Amphetamines Screen Presumptive negative 07/17/18 20:26 U Benzodiazepines Scrn Presumptive negative 07/17/18 20:26 Urine Cocaine Screen Presumptive negative 07/17/18 20:26 U Marijuana (THC) Screen Presumptive negative 07/17/18 20:26 Drugs of Abuse Note Disclamer 07/17/18 20:26 Plasma/Serum Alcohol < 0.01 % (0-0.07) 07/17/18 20:20
[2018-07-19] MEDS ORDERED: NACL 0.9% 1000 ML 1,000 ML IV SCH (09:00)
[2018-07-19] MEDS: ROCEPHIN/NS 2 GM/100 ML 2 GM/100 ML BAG IV SCH (09:42)
[2018-07-19] MEDS: LOVENOX SUB-Q SCH (09:43)
[2018-07-19 09:44] LABS: Basophils % (Auto) 0.2 % (0.0-1.8); Eosinophils % (Auto) 0.1 % (0.0-4.3); Hematocrit 50.1 % (35.5-45.6); Hemoglobin 16.1 gm/dl (11.8-15.2); Lymphocytes # (Auto) 1.7 K/mm3 (1.2-5.4); Lymphocytes % (Auto) 9.4 % (13.4-35.0); Mean Corpuscular HGB Conc 32 % (32-34); Mean Corpuscular Hemoglobin 30 pg (28-32); Mean Corpuscular Volume 93 fl (84-94); Monocytes # (Auto) 1.1 K/mm3 (0.0-0.8); Monocytes % (Auto) 6.2 % (0.0-7.3); Platelet Count 268 K/mm3 (140-440); Red Cell Distribution Width 14.1 % (13.2-15.2)
[2018-07-19] MEDS: SODIUM CHLORIDE FLUSH SYRINGE 10 ML IV SCH ×2 (09:44→22:11)
[2018-07-19 10:01] LABS: Calcium 8.4 mg/dL (8.4-10.2)
[2018-07-19] MEDS: NACL 0.45% 1000 ML 1,000 ML IV SCH (20:32)
[2018-07-20] MEDS: NACL 0.45% 1000 ML 1,000 ML IV SCH (03:14)
[2018-07-20 05:23] LABS: BUN/Creatinine Ratio 4; Blood Urea Nitrogen 6 mg/dL (9-20); Calcium 8.3 mg/dL (8.4-10.2); Hemolysis Index 1
[2018-07-20] MEDS: HumaLOG SUB-Q SCH ×5 (08:33→22:01)
[2018-07-20] MEDS: ROCEPHIN/NS 2 GM/100 ML 2 GM/100 ML BAG IV SCH (09:39)
[2018-07-20] MEDS: LOVENOX SUB-Q SCH (09:40)
[2018-07-20] MEDS: SODIUM CHLORIDE FLUSH SYRINGE 10 ML IV SCH ×2 (09:41→21:53)
--- NOTE | 2018-07-20 09:50 | Progress Note ---
Assessment and Plan Assessment and plan: --Diabetic ketoacidosis; resolved Insulin drip discontinued, change IV fluids to normal saline Transition to long-acting insulin 7030, Accu-Chek sliding scale coverage and ADA diet, Patient's hemoglobin A1c is 15.1 Diabetic education, diabetic diet, possible home health nurse for this is monitoring at discharge --New onset DM: Uncontrolled increase 70/30 insulin to 15 units bid, ADA diet --Hypokalemia; corrected , follow levels, --Acute kidney injury; probably secondary to ATN Resolved, creatinine within normal limits, encourage plenty of fluids --Severe metabolic acidosis; secondary to DKA, significantly improved --Seizure-like activity at admission, no new episodes of seizure Continue seizure precautions --Sepsis; continue medical antibiotics, follow cultures --DVT prophylaxis; Lovenox Plan of care reviewed with the patient family members at the bedside, and his nurse Transfer to Med floor Possible discharge in 1-2 days if stable History Interval history: Patient seen and examined medical records reviewed No new events reported by the nursing staff Vital signs noted Blood sugars remain uncontrolled Patient has no new complaints Vital signs noted Hospitalist Physical - Constitutional Vitals: Temp Pulse Resp BP Pulse Ox 98.5 F 82 15 140/90 98 07/20/18 08:00 07/20/18 04:00 07/20/18 04:00 07/20/18 04:00 07/20/18 08:49 General appearance: Present: no acute distress, well-nourished, obese - EENT Eyes: Present: PERRL, EOM intact - Neck Neck: Present: supple, normal ROM - Respiratory Respiratory effort: normal Respiratory: negative: rales, rhonchi, wheezing - Cardiovascular Rhythm: regular Heart Sounds: Present: S1 & S2 - Extremities Extremities: no ischemia, No edema Peripheral Pulses: within normal limits - Abdominal General gastrointestinal: soft, non-tender, non-distended, normal bowel sounds - Integumentary Integumentary: Present: clear, warm - Psychiatric Psychiatric: appropriate mood/affect, cooperative - Neurologic Neurologic: CNII-XII intact, moves all extremities Results - Labs CBC & Chem 7: 07/19/18 09:23 07/20/18 04:30 Labs: Laboratory Last Values WBC 17.9 K/mm3 (4.5-11.0) H 07/19/18 09:23 RBC 5.40 M/mm3 (3.65-5.03) H 07/19/18 09:23 Hgb 16.1 gm/dl (11.8-15.2) H 07/19/18 09:23 Hct 50.1 % (35.5-45.6) H 07/19/18 09:23 MCV 93 fl (84-94) 07/19/18 09: MCH 30 pg (28-32) 07/19/18 09: MCHC 32 % (32-34) 07/19/18 09: RDW 14.1 % (13.2-15.2) 07/19/18 09: Plt Count 268 K/mm3 (140-440) 07/19/18 09: Lymph % (Auto) 9.4 % (13.4-35.0) L 07/19/18 09: [place] % (Auto) 6.2 % (0.0-7.3) 07/19/18: Eos % (Auto) 0.1 % (0.0-4.3) 07/19/18 09:23 Baso % (Auto) 0.2 % (0.0-1.8) 07/19/18 09: Lymph # 1.7 K/mm3 (1.2-5.4) 07/19/18 09: [place] # 1.1 K/mm3 (0.0-0.8) H 07/19/18 09:23 Eos # 0.0 K/mm3 (0.0-0.4) 07/19/18 09: Baso # 0.0 K/mm3 (0.0-0.1) 07/19/18 09:23 Add Manual Diff Complete 07/17/18 20:20 Total Counted 100 07/17/18 20:20 Seg Neutrophils % 84.1 % (40.0-70.0) H 07/19/18 09:23 Seg Neuts % (Manual) 58.0 % (40.0-70.0) 07/17/18 20:20 Band Neutrophils % 4.0 % 07/17/18 20:20 Lymphocytes % (Manual) 31.0 % (13.4-35.0) 07/17/18 20:20 Reactive Lymphs % (Man) 0 % 07/17/18 20:20 Monocytes % (Manual) 7.0 % (0.0-7.3) 07/17/18 20:20 Eosinophils % (Manual) 0 % (0.0-4.3) 07/17/18 20:20 Basophils % (Manual) 0 % (0.0-1.8) 07/17/18 20:20 Metamyelocytes % 0 % 07/17/18 20:20 Myelocytes % 0 % 07/17/18 20:20 Promyelocytes % 0 % 07/17/18 20:20 Blast Cells % 0 % 07/17/18 20:20 Nucleated RBC % Not Reportable 07/17/18 20:20 Seg Neutrophils # 15.0 K/mm3 (1.8-7.7) H 07/19/18 09:23 Seg Neutrophils # Man 13.9 K/mm3 (1.8-7.7) H 07/17/18 20:20 Band Neutrophils # 1.0 K/mm3 07/17/18 20:20 Lymphocytes # (Manual) 7.4 K/mm3 (1.2-5.4) H 07/17/18 20:20 Abs React Lymphs (Man) 0.0 K/mm3 07/17/18 20:20 Monocytes # (Manual) 1.7 K/mm3 (0.0-0.8) H 07/17/18 20:20 Eosinophils # (Manual) 0.0 K/mm3 (0.0-0.4) 07/17/18 20:20 Basophils # (Manual) 0.0 K/mm3 (0.0-0.1) 07/17/18 20:20 Metamyelocytes # 0.0 K/mm3 07/17/18 20:20 Myelocytes # 0.0 K/mm3 07/17/18 20:20 Promyelocytes # 0.0 K/mm3 07/17/18 20:20 Blast Cells # 0.0 K/mm3 07/17/18 20:20 WBC Morphology Not Reportable 07/17/18 20:20 Hypersegmented Neuts Not Reportable 07/17/18 20:20 Hyposegmented Neuts Not Reportable 07/17/18 20:20 Hypogranular Neuts Not Reportable 07/17/18 20:20 Smudge Cells Not Reportable 07/17/18 20:20 Toxic Granulation Not Reportable 07/17/18 20:20 Toxic Vacuolation Not Reportable 07/17/18 20:20 Dohle Bodies Not Reportable 07/17/18 20:20 Pelger-Huet Anomaly Not Reportable 07/17/18 20:20 Sara Rods Not Reportable 07/17/18 20:20 Platelet Estimate Consistent w auto 07/17/18 20:20 Clumped Platelets Not Reportable 07/17/18 20:20 Plt Clumps, EDTA Not Reportable 07/17/18 20:20 Large Platelets Not Reportable 07/17/18 20:20 Giant Platelets Not Reportable 07/17/18 20:20 Platelet Satelliting Not Reportable 07/17/18 20:20 Plt Morphology Comment Not Reportable 07/17/18 20:20 RBC Morphology Not Reportable 07/17/18 20:20 Dimorphic RBCs Not Reportable 07/17/18 20:20 Polychromasia Not Reportable 07/17/18 20:20 Hypochromasia Not Reportable 07/17/18 20:20 Poikilocytosis Few 07/17/18 20:20 Anisocytosis 1+ 07/17/18 20:20 Microcytosis Not Reportable 07/17/18 20:20 Macrocytosis 1+ 07/17/18 20:20 Spherocytes Not Reportable 07/17/18 20:20 Pappenheimer Bodies Not Reportable 07/17/18 20:20 Sickle Cells Not Reportable 07/17/18 20:20 Target Cells Not Reportable 07/17/18 20:20 Tear Drop Cells Few 07/17/18 20:20 Ovalocytes 1+ 07/17/18 20:20 Helmet Cells Not Reportable 07/17/18 20:20 Rodriguez-[place] Bodies Not Reportable 07/17/18 20:20 [place] Rings Not Reportable 07/17/18 20:20 [place] Cells Not Reportable 07/17/18 20:20 Bite Cells Not Reportable 07/17/18 20:20 Crenated Cell Not Reportable 07/17/18 20:20 Elliptocytes Not Reportable 07/17/18 20:20 Acanthocytes (Spur) Not Reportable 07/17/18 20:20 Rouleaux Not Reportable 07/17/18 20:20 Hemoglobin C Crystals Not Reportable 07/17/18 20:20 Schistocytes Not Reportable 07/17/18 20:20 Malaria parasites Not Reportable 07/17/18 20:20 [place] Bodies Not Reportable 07/17/18 20:20 Hem Pathologist Commnt No 07/17/18 20:20 POC ABG pH 6.693 (7.35-7.45) L 07/17/18 20:36 POC ABG pCO2 15.9 (35-45) L 07/17/18 20:36 POC ABG pO2 213 (80-105) H 07/17/18 20:36 POC ABG HCO3 1.9 07/17/18 20:36 POC ABG Total CO2 < 5 07/17/18 20:36 POC ABG O2 Sat 98 07/17/18 20:36 POC ABG Base Excess < -30 07/17/18 20:36 FiO2 100 % 07/17/18 20:36 Sodium 144 mmol/L (137-145) 07/20/18 04:30 Potassium 3.6 mmol/L (3.6-5.0) 07/20/18 04:30 Chloride 111.7 mmol/L (98-107) H 07/20/18 04:30 Carbon Dioxide 20 mmol/L (22-30) L 07/20/18 04:30 Anion Gap 16 mmol/L 07/20/18 04:30 BUN 6 mg/dL (9-20) L 07/20/18 04:30 Creatinine 1.4 mg/dL (0.8-1.5) 07/20/18 04:30 Estimated GFR > 60 ml/min 07/20/18 04:30 BUN/Creatinine Ratio 4 % 07/20/18 04:30 Glucose 304 mg/dL (75-100) H 07/20/18 04:30 POC Glucose 239 (70-105) H 07/19/18 21:53 Hemoglobin A1c 15.2 % (4-6) H 07/18/18 04:18 Lactic Acid 2.30 mmol/L (0.7-2.0) H* 07/18/18 04:18 Calcium 8.3 mg/dL (8.4-10.2) L 07/20/18 04:30 Phosphorus 2.30 mg/dL (2.5-4.5) L D 07/19/18 09:16 Magnesium 2.00 mg/dL (1.7-2.3) 07/20/18 04:30 Total Bilirubin 0.30 mg/dL (0.1-1.2) 07/17/18 20:20 Direct Bilirubin < 0.2 mg/dL (0-0.2) 07/17/18 20:20 Indirect Bilirubin 0.1 mg/dL 07/17/18 20:20 AST 38 units/L (5-40) 07/17/18 20:20 ALT 41 units/L (7-56) 07/17/18 20:20 Alkaline Phosphatase 147 units/L (35-129) H 07/17/18 20:20 Total Creatine Kinase 253 units/L (55-170) H 07/17/18 20:20 Troponin T < 0.010 ng/mL (0.00-0.029) 07/17/18 20:51 NT-Pro-B Natriuret Pep 165.4 pg/mL (0-450) 07/17/18 20:36 Total Protein 7.8 g/dL (6.3-8.2) 07/17/18 20:20 Albumin 4.4 g/dL (3.9-5) 07/17/18 20:20 Albumin/Globulin Ratio 1.3 % 07/17/18 20:20 Urine Color Yellow (Yellow) 07/17/18 20:26 Urine Turbidity Cloudy (Clear) 07/17/18 20: Urine pH 5.0 (5.0-7.0) 07/17/18 20:26 Ur Specific Hines 1.029 (1.003-1.030) 07/17/18 20: Urine Protein 30 mg/dl mg/dL (Negative) 07/17/18 20: Urine Glucose (UA) >=500 mg/dL (Negative) 07/17/18 20:26 Urine Ketones Tr mg/dL (Negative) 07/17/18 20: Urine Blood Mod (Negative) 07/17/18 20: Urine Nitrite Neg (Negative) 07/17/18 20: Urine Bilirubin Neg (Negative) 07/17/18 20: Urine Urobilinogen < 2.0 mg/dL (<2.0) 07/17/18 20:26 Ur Leukocyte Esterase Neg (Negative) 07/17/18 20:26 Urine WBC (Auto) 15.0 /HPF (0.0-6.0) H 07/17/18 20:26 Urine RBC (Auto) 50.0 /HPF (0.0-6.0) 07/17/18 20:26 Urine Bacteria (Auto) 4+ /HPF (Negative) 07/17/18 20:26 Urine Mucus Few /HPF 07/17/18 20:26 Urine Yeast (Budding) 3+ /HPF 07/17/18 20:26 Urine Sperm 3+ /HPF ([employer]) 07/17/18 20:26 Salicylates < 0.3 mg/dL (2.8-20.0) L 07/17/18 20:20 Urine Opiates Screen Presumptive negative 07/17/18 20:26 Urine Methadone Screen Presumptive negative 07/17/18 20:26 Acetaminophen < 5.0 ug/mL (10.0-30.0) L 07/17/18 20:20 Ur Barbiturates Screen Presumptive negative 07/17/18 20:26 Ur Phencyclidine Scrn Presumptive negative 07/17/18 20:26 Ur Amphetamines Screen Presumptive negative 07/17/18 20:26 U Benzodiazepines Scrn Presumptive negative 07/17/18 20:26 Urine Cocaine Screen Presumptive negative 07/17/18 20:26 U Marijuana (THC) Screen Presumptive negative 07/17/18 20:26 Drugs of Abuse Note Disclamer 07/17/18 20:26 Plasma/Serum Alcohol < 0.01 % (0-0.07) 07/17/18 20:20
[2018-07-20 18:31] VITALS: BP 144/97
[2018-07-21 07:41] LABS: BUN/Creatinine Ratio 8; Blood Urea Nitrogen 10 mg/dL (9-20); Calcium 8.6 mg/dL (8.4-10.2); Hemolysis Index 2; LDL Cholesterol,Direct 106 mg/dL (50-130)
[2018-07-21 07:57] LABS: Chol/HDL Ratio 4.93 %; HDL Cholesterol 31 mg/dL (40-59)
[2018-07-21] MEDS: HumaLOG SUB-Q SCH ×2 (08:22→12:38)
[2018-07-21] MEDS ORDERED: K-DUR PO ONE (10:00)
[2018-07-21] MEDS: ROCEPHIN/NS 2 GM/100 ML 2 GM/100 ML BAG IV SCH (10:18)
[2018-07-21] MEDS: LOVENOX SUB-Q SCH (10:23)
[2018-07-21] MEDS: SODIUM CHLORIDE FLUSH SYRINGE 10 ML IV SCH (10:28)
--- NOTE | 2018-07-21 15:03 | Discharge Summary ---
Providers - Providers Date of Admission: 07/17/18 22:57 Date of discharge: 07/21/18 Attending physician: KALINA ENCARNACION 07/17/18 22:31 Consult to Physician [CONS] Stat Comment: Consulting Provider: EDDIE NAJERA Physician Instructions: Reason For Exam: DKA Primary care physician: [employer] Hospitalization Condition: Stable Disposition: [id number]/[place]-06 HOME [facility] Time spent for discharge: 32 min Core Measure Documentation - Palliative Care Palliative Care/ Comfort Measures: Not Applicable - Core Measures Any of the following diagnoses?: none Exam - Constitutional Vitals: Temp Pulse Resp BP Pulse Ox 98.6 F 94 H 16 144/97 98 07/20/18 18:00 07/20/18 18:00 07/20/18 18:00 07/20/18 18:00 07/20/18 19:26 General appearance: Present: no acute distress, well-nourished, obese - EENT Eyes: Present: PERRL, EOM intact - Neck Neck: Present: supple, normal ROM - Respiratory Respiratory effort: normal Respiratory: bilateral: diminished, negative: rales, rhonchi, wheezing - Cardiovascular Rhythm: regular Heart Sounds: Present: S1 & S2 - Extremities Extremities: no ischemia, No edema - Abdominal General gastrointestinal: Present: soft, non-tender, non-distended, normal bowel sounds - Integumentary Integumentary: Present: clear, warm - Musculoskeletal Musculoskeletal: strength equal bilaterally - Psychiatric Psychiatric: appropriate mood/affect, cooperative - Neurologic Neurologic: CNII-XII intact, moves all extremities Plan Activity: no restrictions, no driving until cleared by PCP Diet: diabetic Additional Instructions: Advised to see private polymer materials consultant for better control of diabetes mellitus. See private neurologist/Dr. Galarza for further evaluation of seizure episode Follow up with: PRIMARY CAREMD [Primary Care Provider] - 3-5 Days NANCY BARRERA MD [Staff Physician] - 7 Days Prescriptions: Insulin NPH/Regular [NovoLIN 70/30] 20 unit SUB-Q BIDDIAB 30 Days units Lispro Insulin [Humalog] See Protocol SUB-Q ACHS 30 Days #30 units Sulfamethoxazole/Trimethoprim [Bactrim DS TAB] 1 each PO BID #14 tablet Other Discharge Orders: Glucometer supplies[Amb] Location: None Selected Glucometer (Amb) Location: None Selected
== END 2018-07-21 16:40 | disposition home health service (06) | DRG 871 ==
LOC: ED 19:33 → CC1 22:57 → IMCU 07-18 20:12 → 3A 07-20 11:28
PROVIDERS: ADMIT Internal Medicine; ATTEND Internal Medicine
PROC: 4A033R1 Measurement of Arterial Saturation, Peripheral, Percutaneous Approach (ICD-10-PCS; principal; 2018-07-17)
DX: A41.9 Sepsis, unspecified organism (principal); N17.0 Acute kidney failure with tubular necrosis; E11.10 Type 2 diabetes mellitus with ketoacidosis without coma; N39.0 Urinary tract infection, site not specified; E86.0 Dehydration; G40.909 Epilepsy, unspecified, not intractable, without status epilepticus
CPT/HCPCS: 36415; 70450; 71045; 80048; 80061; 80074; 80307; 80320; 81001; 82140; 82550; 82803; 82962; 83036; 83735; 83880; 84100; 84484; 85007; 85025; 87040; 93005; 93010; 96361; 96365; 96366; 96367; 96375; G0480; J0696; J1650; J1815; J1953; J2060; J2543; J3480; J7030